=== PATIENT | male | born 1955 | race Caucasian/White ===

== ENCOUNTER → 2017-10-24 | Outpatient (CLI) | payer OTHER ==
[~2017-10-24] MED LIST: ASPIRIN325 PO; B-121000 MCG PO; CATAPRES0.1 MG PO; CHLORTHALIDONE25 MG PO; DIPHENHIST50 MG PO; EPIPEN 2-P0.3 MG/0.3 IM; FLOMAX0.4 MG PO; FOLIC ACID0.4 MG PO; GLUCOPHAGE1000 MG PO; GLUCOPHAGE500 MG PO; JANUVIA100 MG PO; KEFLEX500 MG PO; LEVOTHYROXIN0.125 M1 PO; LEVOTHYROXINE0.2 M1; LEVOTHYROXINE100 MC1 IV; LOTENSIN40 MG PO; MECLIZINE HCL25 M1 PO; NORCO 5-325 TA1 EACH PO; NORVASC 5 MG TAB5 MG PO; PREDNISONE50 MG PO; SILVADENE20 GM TP; SUPER B-COMPL400 MCG PO; TORADOL 10 MG T10 MG PO; TRULICITY0.75 MG/0. SUBQ; VERAPAMIL ER180 MG PO; VIAGRA50 MG PO; [UNRECOGNIZED DRUG - REMARK]
--- NOTE | 2017-10-24 14:54 | 2DMMODE ---
[place] [address] 2 D/M-MODE ECHOCARDIOGRAM Name: NESTOR CYR Room: [facility]#: [id number] Admission: 10/24/17 Attend Phys: King Ko, Discharge: Date of : 59 Date of Service: 10/24/17 1454 Report #: [id number] THIS REPORT FOR: //name// APPROVED REPORT Study performed: 10/24/2017 13:59:30 EXAM: Comprehensive 2D, Doppler, and color-flow Echocardiogram Patient Location: Out-Patient Status: routine BSA: 2.58 HR: 90 bpm Other Information Study Quality: Fair Indications Murmur 2D Dimensions LVEF(%): 83.39 (>50%) IVSd: 13.42 (7-11mm) LVOT Diam: 21.22 (18-24mm) LVDd: 51.39 mm PWd: 12.75 (7-11mm) Ascending Ao: 29.95 (22-36mm) LVDs: 24.36 (25-40mm) Aortic Root: 28.13 mm Davis's LVEF: 83.39 % Volumes Left Atrial Volume (Systole) LA ESV Index: 18.00 mL/m2 Aortic Valve AoV Peak Amos.: 1.88 m/s AO Peak Gr.: 14.17 mmHg LVOT Max P.77 mmHg AO Mean Gr.: 7.89 mmHg LVOT Mean P.15 mmHg LVOT Max V: 1.20 m/s AO V2 VTI: 35.91 cm LVOT Mean V: 0.83 m/s ARIAS (VTI): 2.38 cm2 LVOT V1 VTI: 24.16 cm Mitral Valve E/A Ratio: 0.94 MV Decel. Time: 327.37 [place] [address] 2 D/M-MODE ECHOCARDIOGRAM Name: NESTOR CYR Room: [facility]#: [id number] Admission: 10/24/17 Attend Phys: King Ko, Discharge: Date of : 59 Date of Service: 10/24/17 1454 Report #: [id number] MV E Max Amos.: 0.67 m/s MV PHT: 94.94 ms MVA (PHT): 2.32 cm2 TDI E/Lateral E': 8.38 E/Medial E': 7.44 Medial E' Amos.: 0.09 m/s Lateral E' Amos.: 0.08 m/s Pulmonary Valve PV Peak Amos.: 1.32 m/s PV Peak Gr.: 6.97 mmHg Tricuspid Valve TR Peak Gr.: 30.93 mmHg RVSP: 35.93 mmHg Left Ventricle The left ventricle is normal size. There is normal LV segmental wall motion. Mild concentric left ventricular hypertrophy. Left ventricular systolic function is normal. The left ventricular ejection fraction is within the normal range. LVEF is 60-65%. Grade I - abnormal relaxation pattern. Right Ventricle The right ventricle is normal size. The right ventricular systolic function is normal. Atria The left atrium size is normal. The right atrium size is normal. Aortic Valve Aortic valve is mildly calcified. No aortic regurgitation is present. There is no aortic valvular stenosis. Mitral Valve The mitral valve is normal in structure. There is no mitral valve regurgitation noted. No evidence of mitral valve stenosis. Tricuspid Valve The tricuspid valve is normal in structure. Mild tricuspid regurgitation. The RVSP is __35.9 mmHg. Pulmonic Valve The pulmonary valve is normal in structure. There is no [place]mon[place] [address] 2 D/M-MODE ECHOCARDIOGRAM Name: NESTOR CYR Room: [facility]#: [id number] Admission: 10/24/17 Attend Phys: King Ko, Discharge: Date of : 59 Date of Service: 10/24/17 1454 Report #: [id number] Great Vessels The aortic root is normal in size. IVC is normal in size and collapses with >50% inspiration Pericardium There is no pericardial effusion. <Conclusion> The left ventricle is normal size. Mild concentric left ventricular hypertrophy. There is normal LV segmental wall motion. LVEF is 60-65%. Grade I - abnormal relaxation pattern. There is no aortic valvular stenosis. No aortic regurgitation is present. Mild tricuspid regurgitation. The RVSP is 35.9 mmHg. <ELECTRONICALLY SIGNED> By: Jason Geller MD, [facility] 10/24/17 1454 1454 1454 Jason Geller MD, FACC /INF
== END ==
LOC: M.CRD 13:34
DX: I07.1 Rheumatic tricuspid insufficiency (principal); E29.1 Testicular hypofunction; E11.9 Type 2 diabetes mellitus without complications; I10 Essential (primary) hypertension; E34.9 Endocrine disorder, unspecified; Z79.4 Long term (current) use of insulin